=== PATIENT | female | born 1935 | race Caucasian/White ===

== ENCOUNTER 2018-09-07 10:37 | Outpatient (CLI) | payer MEDICARE ==
--- NOTE | 2018-09-07 11:27 | BD ---
BONE DENSITOMETRY USING DEXA: HISTORY: Postmenopausal screening for osteoporosis. FINDINGS: Lumbar Spine: BMD (g/cm2) L1 0.680 T-Score: -2.8 Z-Score: -0.3 L2 0.833 T-Score: -1.8 Z-Score: 1.0 L3 0.190 T-Score: -1.6 Z-Score: 1.3 L4 1.898 T-Score: -1.5 Z-Score: 1.5 L1-L4 0.837 T-Score: -1.9 Z-Score: 0.9 Femoral Neck: 0.456 T-Score: -0.5 Z-Score: -1.1 Total Femur: 0.642 T-Score: -2.5 Z-Score: -0.2 Impression: Osteoporosis. POS: ISAAC
== END 2018-09-07 10:38 | disposition home or self-care (01) ==
LOC: BICMAMMO 10:37
PROVIDERS: ATTEND Internal Medicine Rheumatology
DX: M81.0 Age-related osteoporosis without current pathological fracture (principal)
CPT/HCPCS: 77080

== ENCOUNTER 2021-10-16 10:42 | Inpatient (IN) | payer MEDICARE ==
[2021-10-16 12:17] LABS: #Eosinphils 0.3 thou/uL (0.0-0.7); #Lymphocytes 1.4 thou/uL (1.20-3.40); #Monocytes 0.8 thou/uL (0.11-0.59); #Neutrophils 5.5 thou/uL (1.40-6.50); %Basophils 0.2 % (0.0-1.0); %Eosinophils 3.5 % (0.0-10.0); %Lymphocytes 17.5 % (21.0-51.0); %Monocytes 9.5 % (0.0-10.0); %Neutrophils 69.3 % (42.0-75.0); Hemoglobin 10.1 g/dL (12.0-16.0); Mean Corpuscular HGB CONC 32.2 g/dL (32.0-36.0); Mean Corpuscular Volume 99.4 fL (78.0-98.0); Platelet Count 135 thou/uL (130-400); RBC Distribution Width 14.9 % (11.5-14.5); Red Blood Cell (RBC) Count 3.16 mill/uL (4.20-5.40)
[2021-10-16 12:40] LABS: ALT (SGPT) 13 U/L (8-55); AST (SGOT) 31 U/L (5-34); Albumin 2.1 g/dL (3.4-4.8); Alkaline Phosphatase 120 U/L (40-110); Anion Gap 13 mmol/L (10-20); BUN (Urea Nitrogen) 58 mg/dL (9.8-20.1); Bilirubin, Total 1.3 mg/dL (0.2-1.2); Calc. Creatinine Clearance 0 mL/min (70-130); Calcium 9.2 mg/dL (7.8-10.44); Carbon Dioxide 18 mmol/L (23-31); Chloride 112 mmol/L (98-107); Globulin 4.2 g/dL (2.4-3.5); Glucose 109 mg/dL (83-110); Protein, Total 6.3 g/dL (5.8-8.1); Sodium 139 mmol/L (136-145)
[2021-10-16 13:03] LABS: CKMB 1.3 ng/mL (0-6.6)
[2021-10-16] MEDS ORDERED: Morphine 4 MG/ML VIAL ONE (13:42)
[2021-10-16] MEDS ORDERED: Ondansetron PF 4 MG/2 ML Vial ONE (13:42)
[2021-10-16 15:30] LABS: Troponin I 0.038 ng/mL (< 0.028)
[2021-10-16] MEDS ORDERED: HYDROcodone/Acetaminophen 5/325 mg Tablet ONE (17:13)
[2021-10-16] MEDS ORDERED: Ondansetron ODT 4 MG TAB PO PRN (18:11)
[2021-10-16] MEDS ORDERED: Acetaminophen 325 MG TAB PO PRN (18:11)
[2021-10-16] MEDS ORDERED: Morphine 2 MG/ML VIAL SLOW IVP PRN (18:47)
[2021-10-16 19:01] LABS: Troponin I 0.037 ng/mL (< 0.028)
[2021-10-16 20:15] VITALS: BMI 28.3
[2021-10-16 21:15] LABS: SARS-CoV-2 NAA Rapid Test Not Detected (NotDetected)
[2021-10-16 22:11] LABS: Troponin I 0.038 ng/mL (< 0.028)
[2021-10-16] MEDS: Heparin 5,000 UNITS/ML VIAL SC SCH (22:21)
[2021-10-17 06:40] LABS: ALT (SGPT) 12 U/L (8-55); AST (SGOT) 27 U/L (5-34); Albumin 1.8 g/dL (3.4-4.8); Alkaline Phosphatase 107 U/L (40-110); Anion Gap 11 mmol/L (10-20); BUN (Urea Nitrogen) 58 mg/dL (9.8-20.1); Bilirubin, Total 0.8 mg/dL (0.2-1.2); Calc. Creatinine Clearance 24 mL/min (70-130); Calcium 8.7 mg/dL (7.8-10.44); Carbon Dioxide 20 mmol/L (23-31); Chloride 113 mmol/L (98-107); Globulin 3.6 g/dL (2.4-3.5); Glucose 93 mg/dL (83-110); Potassium 3.9 mmol/L (3.5-5.1); Protein, Total 5.4 g/dL (5.8-8.1); Sodium 140 mmol/L (136-145)
[2021-10-17 06:48] LABS: #Basophils 0.1 thou/uL (0.0-0.2); #Eosinphils 0.3 thou/uL (0.0-0.7); #Lymphocytes 1.4 thou/uL (1.20-3.40); #Monocytes 0.8 thou/uL (0.11-0.59); #Neutrophils 4.2 thou/uL (1.40-6.50); %Basophils 0.8 % (0.0-1.0); %Lymphocytes 20.2 % (21.0-51.0); %Monocytes 11.2 % (0.0-10.0); %Neutrophils 62.8 % (42.0-75.0); Mean Corpuscular HGB CONC 31.8 g/dL (32.0-36.0); Mean Corpuscular Hemoglobin 32.3 pg (27.0-31.0); Mean Platelet Volume 8.3 fL (7.4-10.4); Platelet Count 109 thou/uL (130-400); Platelet Morphology Comment Appears Decreased; RBC Distribution Width 14.9 % (11.5-14.5); Red Blood Cell (RBC) Count 2.78 mill/uL (4.20-5.40); White Blood Cell (WBC) Count 6.7 thou/uL (4.8-10.8)
[2021-10-17] MEDS: Heparin 5,000 UNITS/ML VIAL SC SCH ×3 (08:34→20:54)
[2021-10-17] MEDS: HYDROcodone/Acetaminophen 5/325 mg Tablet PO PRN ×2 (08:35→21:01)
[2021-10-17] MEDS: Carvedilol 6.25 MG TAB PO SCH (20:51)
[2021-10-17] MEDS: Rosuvastatin 20 MG TAB PO SCH (20:52)
[2021-10-17] MEDS: Aspirin 81 mg Enteric Coated Tablet PO SCH (20:53)
[2021-10-18 06:08] LABS: #Basophils 0.1 thou/uL (0.0-0.2); #Eosinphils 0.4 thou/uL (0.0-0.7); #Lymphocytes 1.9 thou/uL (1.20-3.40); #Neutrophils 4.3 thou/uL (1.40-6.50); %Basophils 0.8 % (0.0-1.0); %Eosinophils 4.7 % (0.0-10.0); %Lymphocytes 24.3 % (21.0-51.0); %Monocytes 13.6 % (0.0-10.0); %Neutrophils 56.6 % (42.0-75.0); Hemoglobin 8.6 g/dL (12.0-16.0); Mean Corpuscular HGB CONC 31.8 g/dL (32.0-36.0); Mean Corpuscular Hemoglobin 31.9 pg (27.0-31.0); Mean Platelet Volume 8.4 fL (7.4-10.4); Platelet Count 109 thou/uL (130-400); RBC Distribution Width 15.1 % (11.5-14.5); Red Blood Cell (RBC) Count 2.69 mill/uL (4.20-5.40); White Blood Cell (WBC) Count 7.6 thou/uL (4.8-10.8)
[2021-10-18 06:21] LABS: Anion Gap 10 mmol/L (10-20); BUN (Urea Nitrogen) 53 mg/dL (9.8-20.1); Calc. Creatinine Clearance 24 mL/min (70-130); Calcium 8.6 mg/dL (7.8-10.44); Carbon Dioxide 20 mmol/L (23-31); Chloride 110 mmol/L (98-107); Glucose 99 mg/dL (83-110); Potassium 4.1 mmol/L (3.5-5.1); Sodium 136 mmol/L (136-145)
[2021-10-18] MEDS: Heparin 5,000 UNITS/ML VIAL SC SCH ×3 (08:55→21:35)
[2021-10-18 09:53] LABS: INR-International Normal Ratio 1.5; Prothrombin Time 18.5 sec (12.0-14.7)
[2021-10-18 09:54] LABS: PTT 47.9 sec (22.9-36.1)
[2021-10-18] MEDS ORDERED: Sodium Bicarbonate 2.5 MEQ/5 ML VIAL ONE (10:18)
[2021-10-18] MEDS ORDERED: Lidocaine 1% PF 5 ML VIAL ONE (10:18)
[2021-10-18] MEDS ORDERED: Bisacodyl 10 MG SUPP PR SCH (12:45)
[2021-10-18] MEDS: Aspirin 81 mg Enteric Coated Tablet PO SCH (21:35)
[2021-10-18] MEDS: Rosuvastatin 20 MG TAB PO SCH (21:35)
[2021-10-18] MEDS: Carvedilol 6.25 MG TAB PO SCH (22:16)
[2021-10-18] MEDS: Estrogens, Conjugated 30 GM TUBE VAG SCH (22:17)
[2021-10-19 05:26] LABS: #Eosinphils 0.2 thou/uL (0.0-0.7); #Lymphocytes 1.4 thou/uL (1.20-3.40); #Monocytes 0.8 thou/uL (0.11-0.59); #Neutrophils 3.9 thou/uL (1.40-6.50); %Basophils 0.3 % (0.0-1.0); %Eosinophils 3.7 % (0.0-10.0); %Lymphocytes 21.8 % (21.0-51.0); %Monocytes 13.2 % (0.0-10.0); %Neutrophils 61.1 % (42.0-75.0); Hemoglobin 8.2 g/dL (12.0-16.0); Mean Corpuscular HGB CONC 31.9 g/dL (32.0-36.0); Mean Corpuscular Hemoglobin 31.9 pg (27.0-31.0); Platelet Count 92 thou/uL (130-400); RBC Distribution Width 14.9 % (11.5-14.5); Red Blood Cell (RBC) Count 2.55 mill/uL (4.20-5.40); White Blood Cell (WBC) Count 6.4 thou/uL (4.8-10.8)
[2021-10-19 05:33] LABS: ALT (SGPT) 11 U/L (8-55); AST (SGOT) 30 U/L (5-34); Albumin 1.7 g/dL (3.4-4.8); Alkaline Phosphatase 105 U/L (40-110); Anion Gap 8 mmol/L (10-20); BUN (Urea Nitrogen) 52 mg/dL (9.8-20.1); Bilirubin, Total 0.7 mg/dL (0.2-1.2); Calc. Creatinine Clearance 28 mL/min (70-130); Calcium 8.3 mg/dL (7.8-10.44); Carbon Dioxide 21 mmol/L (23-31); Chloride 110 mmol/L (98-107); Globulin 3.3 g/dL (2.4-3.5); Glucose 113 mg/dL (83-110); Magnesium 1.8 mg/dL (1.6-2.6); Potassium 4.3 mmol/L (3.5-5.1); Sodium 135 mmol/L (136-145)
[2021-10-19] MEDS: Bisacodyl 10 MG SUPP PR SCH (08:38)
[2021-10-19] MEDS: Polyethylene Glycol 3350 17 GM Packet PO SCH (09:04)
[2021-10-19] MEDS: HYDROcodone/Acetaminophen 5/325 mg Tablet PO PRN (09:08)
[2021-10-19] MEDS: Heparin 5,000 UNITS/ML VIAL SC SCH ×3 (09:56→21:25)
[2021-10-19] MEDS ORDERED: Losartan 25 MG TAB PO SCH (21:00)
[2021-10-19] MEDS: Estrogens, Conjugated 30 GM TUBE VAG SCH (21:21)
[2021-10-19] MEDS: Aspirin 81 mg Enteric Coated Tablet PO SCH (21:23)
[2021-10-19] MEDS: Hydrochlorothiazide 25 MG TAB PO SCH (21:24)
[2021-10-19] MEDS: Rosuvastatin 20 MG TAB PO SCH (21:25)
[2021-10-19] MEDS: Carvedilol 6.25 MG TAB PO SCH (21:29)
[2021-10-20 07:06] LABS: #Eosinphils 0.3 thou/uL (0.0-0.7); #Lymphocytes 1.5 thou/uL (1.20-3.40); #Neutrophils 4.4 thou/uL (1.40-6.50); %Basophils 0.4 % (0.0-1.0); %Eosinophils 3.6 % (0.0-10.0); %Lymphocytes 20.7 % (21.0-51.0); %Monocytes 14.3 % (0.0-10.0); Mean Corpuscular HGB CONC 31.1 g/dL (32.0-36.0); Mean Corpuscular Hemoglobin 31.6 pg (27.0-31.0); Mean Platelet Volume 8.5 fL (7.4-10.4); Platelet Count 94 thou/uL (130-400); RBC Distribution Width 15.4 % (11.5-14.5); Red Blood Cell (RBC) Count 2.51 mill/uL (4.20-5.40); White Blood Cell (WBC) Count 7.2 thou/uL (4.8-10.8)
[2021-10-20 07:20] LABS: ALT (SGPT) 11 U/L (8-55); AST (SGOT) 35 U/L (5-34); Albumin 1.6 g/dL (3.4-4.8); Alkaline Phosphatase 107 U/L (40-110); Anion Gap 10 mmol/L (10-20); BUN (Urea Nitrogen) 54 mg/dL (9.8-20.1); Bilirubin, Total 0.6 mg/dL (0.2-1.2); Calc. Creatinine Clearance 25 mL/min (70-130); Calcium 8.2 mg/dL (7.8-10.44); Carbon Dioxide 20 mmol/L (23-31); Chloride 109 mmol/L (98-107); Globulin 3.4 g/dL (2.4-3.5); Glucose 101 mg/dL (83-110); Potassium 4.8 mmol/L (3.5-5.1); Sodium 134 mmol/L (136-145)
[2021-10-20] MEDS: Polyethylene Glycol 3350 17 GM Packet PO SCH (09:13)
[2021-10-20] MEDS: Bisacodyl 10 MG SUPP PR SCH (09:13)
[2021-10-20] MEDS: Heparin 5,000 UNITS/ML VIAL SC SCH ×3 (09:19→20:33)
[2021-10-20] MEDS: Carvedilol 6.25 MG TAB PO SCH (20:33)
[2021-10-20] MEDS: Rosuvastatin 20 MG TAB PO SCH (20:35)
[2021-10-20] MEDS: Aspirin 81 mg Enteric Coated Tablet PO SCH (20:35)
[2021-10-20] MEDS: Hydrochlorothiazide 25 MG TAB PO SCH (20:35)
[2021-10-20] MEDS: Estrogens, Conjugated 30 GM TUBE VAG SCH (20:43)
[2021-10-20] MEDS: HYDROcodone/Acetaminophen 5/325 mg Tablet PO PRN (20:53)
[2021-10-21] MEDS: HYDROcodone/Acetaminophen 5/325 mg Tablet PO PRN ×2 (03:54→20:34)
[2021-10-21 06:28] LABS: Hemoglobin 7.8 g/dL (12.0-16.0); Mean Corpuscular HGB CONC 32.2 g/dL (32.0-36.0); Mean Corpuscular Hemoglobin 32.3 pg (27.0-31.0); Mean Platelet Volume 8.9 fL (7.4-10.4); Platelet Count 99 thou/uL (130-400); RBC Distribution Width 15.2 % (11.5-14.5); Red Blood Cell (RBC) Count 2.41 mill/uL (4.20-5.40); White Blood Cell (WBC) Count 7.7 thou/uL (4.8-10.8)
[2021-10-21 06:41] LABS: ALT (SGPT) 12 U/L (8-55); AST (SGOT) 44 U/L (5-34); Albumin 1.6 g/dL (3.4-4.8); Alkaline Phosphatase 122 U/L (40-110); Anion Gap 8 mmol/L (10-20); BUN (Urea Nitrogen) 56 mg/dL (9.8-20.1); Bilirubin, Total 0.5 mg/dL (0.2-1.2); Calc. Creatinine Clearance 27 mL/min (70-130); Carbon Dioxide 21 mmol/L (23-31); Chloride 109 mmol/L (98-107); Globulin 3.3 g/dL (2.4-3.5); Glucose 109 mg/dL (83-110); Protein, Total 4.9 g/dL (5.8-8.1); Sodium 133 mmol/L (136-145)
[2021-10-21 06:44] LABS: Band 3 % (5-11); Eosinophils 12 % (0-10); Lymphocytes 15 % (21-51); MDiff Complete? YES; Monocytes 7 % (0-10); Neutrophil 63 % (42-75); Platelet Morphology Comment Appears Decreased
[2021-10-21] MEDS: Heparin 5,000 UNITS/ML VIAL SC SCH ×3 (09:18→20:27)
[2021-10-21] MEDS: Bisacodyl 10 MG SUPP PR SCH (09:18)
[2021-10-21] MEDS: Polyethylene Glycol 3350 17 GM Packet PO SCH (09:18)
[2021-10-21] MEDS: Aspirin 81 mg Enteric Coated Tablet PO SCH (20:34)
[2021-10-21] MEDS: Estrogens, Conjugated 30 GM TUBE VAG SCH (20:34)
[2021-10-21] MEDS: Rosuvastatin 20 MG TAB PO SCH (20:34)
[2021-10-21] MEDS: Hydrochlorothiazide 25 MG TAB PO SCH (20:35)
[2021-10-21] MEDS: Carvedilol 6.25 MG TAB PO SCH (20:35)
[2021-10-22 07:01] LABS: Anisocytosis SLIGHT = 6-15 cells (100X) (0-5/hpf); Band 2 % (5-11); Eosinophils 5 % (0-10); Lymphocytes 18 % (21-51); MDiff Complete? YES; Macrocytosis MODERATE=16-30 cells (100X) (0-5/hpf); Mean Corpuscular HGB CONC 32.5 g/dL (32.0-36.0); Mean Corpuscular Hemoglobin 32.6 pg (27.0-31.0); Mean Platelet Volume 8.8 fL (7.4-10.4); Monocytes 7 % (0-10); Neutrophil 68 % (42-75); Platelet Count 104 thou/uL (130-400); Platelet Morphology Comment Appears Decreased; RBC Distribution Width 15.2 % (11.5-14.5); Red Blood Cell (RBC) Count 2.45 mill/uL (4.20-5.40); White Blood Cell (WBC) Count 6.5 thou/uL (4.8-10.8)
[2021-10-22 08:29] VITALS: TEMP 97.9
[2021-10-22] MEDS: Bisacodyl 10 MG SUPP PR SCH (08:32)
[2021-10-22] MEDS: Heparin 5,000 UNITS/ML VIAL SC SCH (08:32)
[2021-10-22] MEDS: Polyethylene Glycol 3350 17 GM Packet PO SCH (11:10)
[2021-10-22 13:05] VITALS: BP 112/65
[2021-10-22] MEDS: HYDROcodone/Acetaminophen 5/325 mg Tablet PO PRN (13:10)
== END 2021-10-22 14:20 | disposition home health service (06) | DRG 552 ==
LOC: ERS 10:42 → SURG A 17:38 → OBSVTOIN 10-18 16:09
PROVIDERS: ADMIT Internal Medicine; ATTEND Internal Medicine
DX: S32.040A Wedge compression fracture of fourth lumbar vertebra, initial encounter for closed fracture (principal); N17.9 Acute kidney failure, unspecified; E87.1 Hypo-osmolality and hyponatremia; I13.0 Hypertensive heart and chronic kidney disease with heart failure and stage 1 through stage 4 chronic kidney disease, or unspecified chronic kidney disease; J91.8 Pleural effusion in other conditions classified elsewhere; Z20.822 Contact with and (suspected) exposure to COVID-19; I50.9 Heart failure, unspecified; M81.0 Age-related osteoporosis without current pathological fracture; E78.5 Hyperlipidemia, unspecified; R91.8 Other nonspecific abnormal finding of lung field; N18.30 Chronic kidney disease, stage 3 unspecified; D63.1 Anemia in chronic kidney disease; R33.9 Retention of urine, unspecified; Z88.1 Allergy status to other antibiotic agents; Z85.3 Personal history of malignant neoplasm of breast; Z95.0 Presence of cardiac pacemaker; Z90.13 Acquired absence of bilateral breasts and nipples; Z79.899 Other long term (current) drug therapy; Z79.82 Long term (current) use of aspirin; Z78.0 Asymptomatic menopausal state
CPT/HCPCS: 36415; 51702; 51798; 71045; 71250; 72131; 72170; 76604; 80048; 80053; 82553; 83735; 84484; 85025; 85610; 85730; 93005; 96372; 96374; 96375; G0378; J1644; J2270; J2405; U0002